=== PATIENT | male | born 1965 | race Caucasian/White ===

== ENCOUNTER 2021-05-08 10:02 | Emergency (ER) | payer OTHER ==
[~2021-05-08] VITALS: Ht 182.9 cm; Wt 87.6 kg
--- NOTE | 2021-05-08 12:47 | NUR ---
Patient to room from lobby
--- NOTE | 2021-05-08 13:16 | NUR ---
DR GRACIA AT BEDSIDE. CT RESULTS REVIEWED AND QUESTIONS ANSWERED. D/C POC DISCUSSED.
[2021-05-08 13:17] VITALS: BP 125/82
--- NOTE | 2021-05-08 13:47 | NUR ---
Patient/Caregiver given discharge instructions and they have confirmed that they understand the instructions. Patient ambulatory with steady gait. NAD, all questions answered appropriately, denies additional needs at this time. No personal belongings left in room after discharge.
== END 2021-05-08 14:37 | disposition home or self-care (01) ==
LOC: ED 13:35
DX: S09.8XXA Other specified injuries of head, initial encounter (principal); R55 Syncope and collapse; Y04.0XXA Assault by unarmed brawl or fight, initial encounter; Y93.89 Activity, other specified; Y92.89 Other specified places as the place of occurrence of the external cause; Y99.8 Other external cause status
CPT/HCPCS: 70450; 72125; 99285